=== PATIENT | male | born 1990 | race Caucasian/White ===

== ENCOUNTER 2017-04-12 11:03 | Emergency (ER) | payer OTHER ==
[2017-04-12] MEDS ORDERED: NS 0.9% 1000 ML* 1,000 ML IV ONE (11:48)
[2017-04-12] MEDS ORDERED: Morphine INJ* 4 MG/ML 1 ML SYRINGE IV ONE (11:48)
[2017-04-12] MEDS ORDERED: Ondansetron INJ* 2 MG/ML VIAL IV ONE (11:48)
--- NOTE | 2017-04-12 11:55 | ED ---
Upper Extremity Pain - HPI Summary HPI Summary: Rt hand dominant pt here w/ Lt hand injury around 10:00am this morning. Was at work using a printing press when he got his hand caught. Ripped skin over palmar surface and has a laceration on one of his finger. Pain w/ moving fingers and area of injury over palm is reported as painful but also feels numb when I retract skin. Bleeding at onset - BIBA who wrapped hand with pressure dressing and ice pack. He has been elevating it as well. No meds prior to arrival. He is unsure of his tetanus status. - History of Current Complaint Chief Complaint: EDExtremityUpper Stated Complaint: LT HAND INJURY Time Seen by Provider: 04/12/17 11:19 Hx Obtained From: Patient, Family/Vault Custodian - co-worker - Allergies/Home Medications Allergies/Adverse Reactions: Allergies Allergy/AdvReac Type Severity Reaction Status Date / Time No Known Allergies Allergy Verified 05/04/14 13:38 PMH/Surg Hx/FS Hx/Imm Hx Previously Healthy: Yes Endocrine/Hematology History: Denies: Hx Anticoagulant Therapy, Hx Blood Disorders, Hx Diabetes, Hx Thyroid Disease, Hx Anemia, Hx Unexplained Bleeding, Autoimmune Disease Cardiovascular History: Reports: Other Cardiovascular Problems/Disorders - cardiac murmur as child - pt reports surgically corrected - no issues since Denies: Hx Hypertension Respiratory History: Denies: Hx Asthma, Hx Chronic Obstructive Pulmonary Disease (COPD), Hx Sleep Apnea GI History: Denies: Hx Ulcer - Surgical History Surgery Procedure, Year, and Place: Surgery for heart murmur as a child - Immunization History Immunizations Up to Date: Unable to Obtain/Confirm Infectious Disease History: No Infectious Disease History: Denies: Hx Hepatitis, Hx Human Immunodeficiency Virus (HIV), Hx of Known/ Suspected MRSA, Traveled Outside the [place] in Last 30 Days - Social History Occupation: Employed Full-time Lives: With Family - girlfriend Alcohol Use: Occasionally Hx Substance Use: Yes Substance Use Type: Reports: Marijuana - daily - recreational Hx Tobacco Use: Yes Smoking Status (MU): Current Every Day Smoker Type: Cigarettes Amount Used/How Often: 1/2 PPW Review of Systems Constitutional: Other - feels flushed and ill from looking at wound - otherwise okay, hungry Cardiovascular: Negative Negative: Chest Pain Respiratory: Negative Negative: Shortness Of Breath Gastrointestinal: Negative Negative: Abdominal Pain, Vomiting, Diarrhea, Nausea Positive: no symptoms reported Musculoskeletal: Other - see HPI Skin: Other - see HPI Neurological: Negative - see HPI Psychological: Normal All Other Systems Reviewed And Are Negative: Yes Physical Exam Triage Information Reviewed: Yes Vital Signs On Initial Exam: Initial Vitals Temp Pulse Resp BP Pulse Ox 97.7 F 62 18 133/79 100 04/12/17 11:08 04/12/17 11:08 04/12/17 11:08 04/12/17 11:08 04/12/17 11:08 Vital Signs Reviewed: Yes Appearance: Positive: Well-Appearing, Pain Distress - mild w/ wrap in place - worse w/ undressing, Thin Skin: Positive: Warm - generalized pallor; Lt palm with 1/3 of palmar dermis lacerated - palmar aponeurosis identified along with subcutaneous tissue, tendons - no henrry deep lacerations; edges w/ what appears to be grease/oil; lac over dorsal aspect of distal middle finger Head/Face: Positive: Normal Head/Face Inspection Eyes: Positive: EOMI ENT: Positive: Hearing grossly normal Dental: Positive: Gross Decay/Caries @ Respiratory/Lung Sounds: Positive: Breath Sounds Present Cardiovascular: Positive: Pulses are Symmetrical in both Upper and Lower Extremities Musculoskeletal: Positive: Pain @ - with abduction of fingers. Negative: Strength/ROM Intact - limited phalange movement d/t pain but he is able to move all phalanges somewhat Neurological: Positive: Sensory/Motor Intact - reports skin involved in laceration is numb (decreased sensation w/ palpation, skin retraction) but can feel sterile water on wound and feels senation w/ gross touch along edges of wound and over phalanges, Alert, Oriented to Person Place, Time, CN Intact II- III Psychiatric: Positive: Anxious - [place] Coma Scale Coma Scale Total: 15 Procedures - Procedure Summary Procedure Summary: Wound undressed for observation then redressed for [facility] - pt tolerated well. Diagnostics - Vital Signs Vital Signs Temp Pulse Resp BP Pulse Ox 04/12/17 11:11 97.7 F 62 18 133/79 100 04/12/17 11:08 97.7 F 62 18 133/79 100 - Laboratory Result Diagrams: 04/12/17 11:45 Lab Statement: Any lab studies that have been ordered have been reviewed, and results considered in the medical decision making process. Course/Dx - Course Course Of Treatment: Spoke w/ Dr. Barrow - okay to dress wound and send to office today for eval w/ potential surgery tomorrow. Will send pt to [address] [place] [address] and advised to call upon leaving office for appt but will be seen today and not to present later than 16:00 today. Will receive IV anbx here before leaving. May eat/drink today. D/c w/ PO anbx and pain meds. Pt and family aware and agree w/ plan. - Diagnoses Provider Diagnoses: Laceration of left hand, complicated - Physician Notifications Discussed Care of Patient With: Camron Barrow Discharge - Discharge Plan Condition: Stable Disposition: HOME Prescriptions: Cephalexin CAP* [Keflex CAP*] 500 mg PO QID #39 cap HYDROcodone/ACETAMIN 5-325 MG* [[place] 5-325 TAB*] 1 tab PO Q6H PRN #20 tab MDD 4 PRN Reason: Pain Patient Education Materials: Laceration (ED) Referrals: Camron Barrow MD [Medical Doctor] - Additional Instructions: Rest, ice, elevate - keep dressing clean, dry and intact until seen by orthopedics today. Call Dr. Barrow office [facility] to schedule a time for appointment today - do not go to office any later than 4:00pm You have already received a tetanus vaccine, pain medication and antibiotic. Additional medications have been sent to your pharmacy. Please pick them up today before going home for the night as you will need to take them every so many hours (see instructions for details). You may take the ibuprofen 800mg you have at home every 8 hours with food.
[2017-04-12] MEDS ORDERED: ceFAZolin 2 GM PREMIX(*) 2 GM/50 ML BAG IVPB ONE (12:00)
[2017-04-12] MEDS ORDERED: Tetan/Diph/Pertus SYR(Tdap)* 0.5 ML SYR(BOOSTRIX) use SYR IM ONE (12:06)
[2017-04-12 12:07] LABS: Hematocrit 43 % (42-52); Hemoglobin 14.4 g/dl (14.0-18.0); Mean Corpuscular HGB Conc 33 g/dl (31-36); Mean Corpuscular Hemoglobin 30 pg (27-31); Mean Corpuscular Volume 92 fL (80-94); Mean Platelet Volume 8 um3 (7.4-10.4); Red Blood Count 4.74 10^6/ul (4.0-5.4); Red Cell Distribution Width 13 % (10.5-15); White Blood Count 7.7 10^3/ul (3.5-10.8)
--- NOTE | 2017-04-12 12:29 | RAD ---
INDICATION: Crush injury to the fingers and palm of the LEFT hand. Pain. COMPARISON: No relevant prior exams available on the [facility] P[facility] for comparison. TECHNIQUE: AP, lateral, and oblique views LEFT hand. REPORT AND IMPRESSION: Soft tissue swelling most prominent over the volar aspect of the palm and dorsal aspect of the hand at the metacarpal phalangeal joints. No conspicuous foreign body evident. Negative for fracture or dislocation.
[2017-04-12 13:47] VITALS: BP 122/70
== END 2017-04-12 13:47 | disposition home or self-care (01) ==
LOC: ED 11:03
DX: S61.411A Laceration without foreign body of right hand, initial encounter (principal); W31.89XA Contact with other specified machinery, initial encounter; Y93.9 Activity, unspecified; Y92.89 Other specified places as the place of occurrence of the external cause; Y99.0 Civilian activity done for income or pay; Z23 Encounter for immunization; F12.90 Cannabis use, unspecified, uncomplicated; F17.210 Nicotine dependence, cigarettes, uncomplicated
CPT/HCPCS: 36415; 85025; 90471; 90715; 96374; 96375; 99283; J0690; J2270; J2405

== ENCOUNTER 2017-04-13 07:34 | Day surgery (SDC) | payer OTHER ==
[2017-04-13] MEDS ORDERED: ceFAZolin 2 GM PREMIX(*) 2 GM/50 ML BAG IVPB ONE (07:53)
[2017-04-13] MEDS ORDERED: Famotidine IV* 10 MG/ML 2 ML (20 mg) ONE (07:53)
[2017-04-13] MEDS ORDERED: Bupivacaine 0.25% SDV* 30 ML ONE (08:20)
[2017-04-13] MEDS ORDERED: fentaNYL* 50 MCG/ML 2 ML VIAL (100 MCG VIAL) IV PRN (08:22)
[2017-04-13] MEDS ORDERED: PROCHLORPERAZINE INJ 5 MG/ML 2 ML VIAL IV PRN (08:22)
[2017-04-13] MEDS ORDERED: oxyCODONE/Acetamin 5/325 MG* TAB PO PRN (08:22)
[2017-04-13] MEDS ORDERED: HYDROcodone/ACETAMIN 5-325 MG* 1 TAB PO PRN (08:22)
[2017-04-13] MEDS ORDERED: Ketorolac INJ* 30 MG/ML 1 ML VIAL IV PRN (08:22)
[2017-04-13] MEDS ORDERED: fentaNYL* 50 MCG/ML 2 ML VIAL (100 MCG VIAL) ONE ×2 (08:24→09:31)
[2017-04-13] MEDS ORDERED: Midazolam* 1 MG/ML 2 ML VIAL (2 MG) ONE (08:24)
[2017-04-13] MEDS ORDERED: Lidocaine 2% PF * 5 ML VIAL ONE (08:25)
[2017-04-13] MEDS ORDERED: Propofol* 10 MG/ML 20 ML BTL IV PUSH ONE (08:25)
[2017-04-13] MEDS ORDERED: Ondansetron INJ* 2 MG/ML VIAL ONE (08:56)
[2017-04-13 10:36] VITALS: BP 133/82
--- NOTE | 2017-04-14 03:58 | OP ---
DATE OF OPERATION: 04/13/17 - [facility] DATE OF : 89 SURGEON: Camron Barrow MD SALES AND MARKETING ASSOCIATE: ANDRADE Herrera. An pet care assistant was needed for the entirety of the procedure to aid in retraction and positioning of the arm. ANESTHESIOLOGIST: Dr. Chandler. ANESTHESIA: General. PRE-OP DIAGNOSES: 1. Crush injury, right hand. 2. Posttraumatic carpal tunnel syndrome, right hand. POST-OP DIAGNOSES: OPERATIVE PROCEDURE: 1. Irrigation and debridement of right hand crush injury and palm degloving wound. 2. Right carpal tunnel release. 3. Repair of complex wound, measuring 13 cm. 4. Exploration of digital nerves, digital neurovascular bundles in the second and third web spaces and going out to the index, middle and ring fingers. INDICATIONS: Rosamaria was working yesterday when his hand got caught in a [employer] press. He had traumatic rents in the soft tissue associated with a significant palm degloving injury. He had dense numbness and tingling on the ulnar aspect of the index finger and on the ulnar aspect of the middle finger. Overnight, he developed more progressive numbness and tingling in the right thumb. The wound was somewhat contaminated. I talked to him about the need of doing a very formal thorough I and D under loupe magnification, and that I would explore the digital nerves at that time and that they were likely just significantly crushed and contused, but intact that I would explore them. Since he had developed more increasing numbness and tingling in the thumb overnight and the small finger was relatively without numbness and tingling. It was becoming clear he had developed a significant carpal tunnel syndrome associated with the crush injury. I talked to him about the risks and benefits of surgery including the risk of loss of the flap and need for potential additional procedures. I also talked about the risk of infection. He wanted to proceed with surgery. ESTIMATED BLOOD LOSS: 20 mL. COMPLICATIONS: None. FINDINGS: The common digital neurovascular bundles in the second and third web spaces going out to the branching and then becoming proper digital neurovascular bundles were explored. There were some hemorrhage changes in the radial digital artery going to the index finger. The nerves were all intact. DESCRIPTION OF PROCEDURE: Rosamaria was seen in the preoperative holding area. The correct side, site, and procedure were identified. The extremity was cleaned extensively with Betadine scrub and paint. The arm was otherwise prepped and draped in the usual fashion. A formal time out was performed. I did exsanguinate the extremities with Esmarch and I inflated the tourniquet to 250 mmHg. I then made a longitudinal incision proximal to the traumatic flap in line with the typical location for carpal tunnel release. This was carried down through the subcutaneous tissue, the palmar fascia was divided longitudinally and retracted. The transverse carpal ligament was identified and released just off the the radial aspect of the hook of the hamate. I did leave a small skin bridge between the traumatic wound, but did release the deeper fascial structures. I took care not to undermine or really develop any flaps so as to minimize the vascular insult with this additional wound. Once I had fully released the transverse carpal ligament distally, I went ahead and released the subcutaneous tissue and palmar fascia and the palmar and distal antebrachial fascia retracted superficially and ulnarly. I placed a Vasquez retractor and under direct visualization with tenotomy scissors released the remainder of the transverse carpal ligament, distal antebrachial fascia, proximally. There was no more compression on the nerve. The contents of the carpal tunnel were clearly hemorrhagic and significantly damaged due to the crush injury. I went ahead and irrigated out the wound copiously and then turned my attention to the palm. There was a traumatic wound from distal radial down to the area of the second MP joint extending obliquely and proximally down towards the tip of my carpal tunnel incision, extended back distal and finished in the third webspace. In the center of this flap, there was another oblique parallel longitudinal rent in the flap in line with the obliquity of the flap. I lifted this up and it came up full thickness right off of the palmar fascia. There were no intact perforators to the flap. This was just gently elevated using my finger to bluntly release the hematoma that was developing. The flap was retracted distally and radially. Radial to the traumatic rent, the skin and subcutaneous tissue was degloved around the radial aspect of the second metacarpal. There was significant amount of pink venules that had been clotted off. There was some debris in the margins of the wound. This was all trimmed back sharply with the tenotomy scissors and the [place] blade taking another just 1 mm of the skin as well to get it back to a nice smooth edge. All of the debris was removed under 3.5x loupe magnification until the wound was completely cleaned. I did not disturb the undersurface of the flap. I made great care not to disturb the undersurface of the flap so as to not to disturb the subdermal plexus. I then irrigated out the wound copiously. I soaked the hand in a saline Betadine mixture for about 5 minutes. Again, irrigated out copiously after the soak. Everything was looking clean at this point. I therefore laid my flap back down and it was then loosely reapproximated matching up the skin creases with 4-0 nylon simple interrupted sutures leaving a good centimeter between each suture to allow for some drainage. The central rent in the flap was likewise closed with 4-0 nylon simple interrupted sutures allowing for drainage and lining up the skin creases. The carpal tunnel incision was closed with 4-0 nylon suture. The tourniquet was deflated prior to closure and hand pinked up immediately. The fact that I had deflated the tourniquet during the soak. Total tourniquet time was 25 minutes. Edges of the flap were checked for bleeding and there was good bleeding at the most distal edges of the flap. 0.25% plain Marcaine was infiltrated around all the incisions. The wound was dressed with Xeroform, couple of 4x4's and nice bulky compressive dressing out of Kerlix was applied. Some sterile Webril was applied and then a volar cock-up wrist splint was applied just out to the level of MP joint to allowing for finger flexion and extension. He was then woken up and taken to recovery room in stable condition. [id number]/[facility] #: [id number] RAVEN
== END 2017-04-13 10:45 | disposition home or self-care (01) ==
LOC: OREAST 07:34
PROVIDERS: ATTEND Orthopaedic Surgery Hand Surgery
DX: S67.21XA Crushing injury of right hand, initial encounter (principal); G56.01 Carpal tunnel syndrome, right upper limb; W24.1XXA Contact with transmission devices, not elsewhere classified, initial encounter; Y92.69 Other specified industrial and construction area as the place of occurrence of the external cause; Y99.0 Civilian activity done for income or pay; F17.200 Nicotine dependence, unspecified, uncomplicated
CPT/HCPCS: J0690; J2250; J2405; J2704; J3010